=== PATIENT | female | born 1930 | race Caucasian/White ===

== ENCOUNTER 2016-07-19 05:30 | Day surgery (SDC) | payer MEDICARE, MEDICAID ==
--- NOTE | 2016-07-15 19:23 | PCM.ANEPRE ---
Anesthesia Pre-Op Review Reason for Review: cardio hx, platelet count 73 Anesthesia Recommendations: Proceed with Procedure Additional Comments 74 yo woman with multiple medical problems-see list. Low risk for ischemia arlen perfusion study 03/2016. LV Stress EF is 97%, excellent. Plts 73,000-Dr tomas has 6 pack of platelets ordered for day of surgery. Ok to proceed with usual DOS evaluation. GA should be acceptable given uncertain platelet count after transfusion. Chart Reviewed by: Mynor Rowland MD, MD Jul 15, 2016 19:23
[~2016-07-19] VITALS: Ht 152.4 cm; Wt 64.3 kg
[2016-07-19] VITALS (12 sets, daily range): BP systolic 112–151; BP diastolic 56–80; PULSE 54–74; RESP 16–20; O2SAT 94–99
[~2016-07-19 05:30] MED LIST: ACET-171 PO; AMLO5TAB2 PO; AMOX-366 PO; CALC-722 PO; CARV25TA2 PO; CHOL10008 PO; DOCU250C2 PO; FUR20 PO; ISOS30TA4 PO; KEN25CR EXT; LIP40 PO; LOSA50TA37 PO; Lactated Ringer's 1,000 ML IV ONE; MAGN400T23 PO; MULT-1018 PO; NITR0.4T SL; OMEP20TA24 PO; OXYC5TAB72 PO; PRAM0.252 PO; SENN-133 PO; WARF2.5T82 PO
[2016-07-19] MEDS ORDERED: Phenylephrine/NS 100 mCg/mL 10 mL Syringe IVPUSH ONE (05:31)
[2016-07-19] MEDS ORDERED: Bupiv-Spinal 0.75%/Dex 8.25% 2 mL Inj ONE (05:31)
[2016-07-19] MEDS ORDERED: Propofol 10,000 mCg/mL 20 mL Inj ONE (05:31)
[2016-07-19] MEDS ORDERED: fentaNYL-PF 50 mCg/mL 2 mL Inj ONE (05:31)
[2016-07-19] MEDS: Vancomycin 1 Gm/200 mL NS Premix IV SCH ×2 (06:00→06:34)
[2016-07-19] MEDS ORDERED: Bupivacaine Liposome 1.3% 20 mL Inj NERVEBLOCK ONE (06:00)
[2016-07-19] MEDS ORDERED: CeFAZolin Inj 2 GM in IV Premix 1 EACH IV ONE (06:00)
[2016-07-19 06:59] LABS: BASOPHILS % (AUTO) 0.3 % (0-3); EOSINOPHILS % (AUTO) 1.8 % (0-5); MONOCYTES % (AUTO) 11.6 % (4-12); Mean Corpuscular Hemoglobin 30.6 pg (27.0-35.0); Mean Corpuscular Volume 96.6 fL (81-100); NEUTROPHILS % (AUTO) 38.4 % (40-74); Platelet Count 82 bil/L (150-400)
[2016-07-19 07:17] LABS: INR 1.06 ratio
[2016-07-19] MEDS ORDERED: Bupivacaine-MPF 0.25%/EPI 30 mL Inj INJ ONE (08:48)
[2016-07-19] MEDS ORDERED: Bupivacaine Liposome 1.3% 20 mL Inj INFILTRATE ONE (08:48)
--- NOTE | 2016-07-19 08:52 | PCM.HPANE ---
Patient Data Surgeon Admitting Provider: Attending Provider:Hi Guardado MD Primary Care Physician:Loreto Medina MD Other Provider:La [place] Anesthesia Reason for Visit Left Knee Arthritis Ht/WT & BMI Height (Feet): 5 Height (Inches): 0.00 Weight (Kilograms): 64.3 Body Mass Index 27.00 Allergies Coded Allergies: Sulfa (Sulfonamide Antibiotics) (Verified Allergy, Severe, SWELLING, ) hydralazine (Verified Allergy, Severe, Rash, 07/14/15) lisinopril (Verified Allergy, Severe, Scratchy throat, 07/14/15) levofloxacin (Verified Allergy, Mild, 07/14/15) Past Anesthesia History Anesthesia History: Denies:: Anesthesia Reactions, Fam Anesthesia Reaction Diabetes History Hx Diabetes?: No MRSA MRSA: No (possibly after surgery- 2-3 years ago- unsure) Medications Blood Thinner: Coumadin Hypertension Medication: Yes Home Meds Incl Beta Lauren: Yes Date Beta Lauren Taken: Jul 19, 2016 Time Beta Lauren Taken: 0500 Reported Medications Warfarin Sodium 2.5 Mg Tablet1.25 Mg PO , tuesday 30 Days Ref 0 last dose 07/1307/15/16 Warfarin Sodium 2.5 Mg Tablet2.5 Mg PO 5xweekly 30 Days Ref 0 last dose 07/1307/15/16 Cholecalciferol (Vitamin D3) (Vitamin D3)1,000 Unit Tab.chew2,000 Unit PO DAILY 07/15/16 Sennosides (Senna)8.6 Mg Qrnvis67.2 Mg PO BID PRN For Constipation 07/15/16 Omeprazole Magnesium (Prilosec Otc)20 Mg Tablet.dr20 Mg PO DAILY #1 PKG Ref 0 07/15/16 oxyCODONE 5 Mg Tablet2.5 Mg PO BID PRN For Pain Ref 0 07/15/16 Nitroglycerin SL (Nitrostat)0.4 Mg Tab.subl0.4 Mg SL Q5MIN PRN For Chest Pain # 1 BOTTLE 07/15/16 Multivitamin (Multi Vitamin Daily)1 Each Tablet1 Each PO DAILY 30 Days Ref 0 07/15/16 Pramipexole Dihydrochloride (Mirapex)0.25 Mg Tablet0.375 Mg PO HS 07/15/16 Acetaminophen 500 Mg Tablet1,000 Mg PO Q8H PRN For Pain 07/15/16 Magnesium Oxide (Mag-Oxide)400 Mg Pempwx780 Mg PO DAILY 07/15/16 Losartan Potassium 50 Mg Bbiyti85 Mg PO QPM 07/15/16 Losartan Potassium 50 Mg Ylriwp43 Mg PO QAM 07/15/16 Atorvastatin (Lipitor)40 Mg Ekojsy84 Mg PO DAILY Ref 0 07/15/16 Furosemide 20 Mg Tab40 Mg PO DAILY 30 Days Ref 0 07/15/16 Isosorbide MN ER 30 Mg Tab.er.24h90 Mg PO DAILY 07/15/16 Docusate Sodium 250 Mg Rzvplar209 Mg PO BID PRN For Constipation Ref 0 07/15/16 Carvedilol 25 Mg Okwckl60 Mg PO BID Ref 0 07/15/16 Calcium Citrate/Vitamin D3 (Calcium Cit-Vit D 250-200 Tab)1 Each Tablet1 Each PO DAILY 07/15/16 Amlodipine 5 Mg Tablet5 Mg PO BID Ref 0 07/15/16 Discontinued Reported Medications Triamcinolone Acet (Triamcinolone Acetonide Cream)1 Applic/0.25 Gm Cr1 Applic EXT BID #60 GM Ref 0 07/15/16 Amoxicillin/Clav K 875-125 mg (Augmentin 875-125 mg)1 Each Tablet1 Tablet PO BID #20 TABLET Ref 0 07/15/16 Warfarin Sodium 2.5 Mg Tablet2.5 Mg PO DAILY 30 Days Ref 0 09/04/15 Furosemide 20 Mg Tab20 Mg PO DAILY 30 Days Ref 0 05/03/14 Losartan Potassium 50 Mg Gwiaff31 Mg PO BID 05/03/14 Sennosides (Senna Lax)8.6 Mg Tablet8.6 Mg PO DAILY PRN For Constipation 12/28/13 Hydrocodone/Acetaminophen ([place] 5-325 Tablet)1 Each Tablet1 Each PO DAILY PRN For Pain 09/02/13 Acetaminophen 500 Mg Vomwsi799 Mg PO Q8 PRN For Pain 09/02/13 Ca Cmb No.1/Vit D3/B-6/FA/B12 (Vitamin D3 1,000 Unit Tablet)1 Each Tablet2 Each PO NOON 30 Days 09/02/13 Omeprazole Magnesium (Omeprazole)20 Mg Capsule.dr20 Mg PO DAILY 30 Days Ref 0 09/02/13 Mirtazapine 7.5 Mg Oqliqi11 Mg PO HS #30 TABLET Ref 0 09/02/13 Citalopram 10 Mg Karegi23 Mg PO DAILY 30 Days Ref 0 09/02/13 Carvedilol (Coreg)25 Mg Xjwszs43 Mg PO BID 30 Days Ref 0 09/02/13 Atorvastatin (Lipitor)40 Mg Dpwkep21 Mg PO HS 30 Days Ref 0 09/02/13 CHOLECALCIFEROL-Expunged Drug, Do Not Renew! (VITAMIN D3-Expunged Drug, Do Not Renew!)2,000 Unit Capsule2,000 Unit PO DAILY Vitamin supplement 11/22/11 Multivitamins-Expunged Drug, Do Not Renew! 1 Each Tab.chew1 Each PO AM Vitamin supplement 11/22/11 Magnesium Oxide (Magnesium)400 Mg Akzhwli427 Mg PO DAILY Magnesium supplement 11/22/11 Calcium Citrate/Vitamin D3 (Calcium Citrate-Vit D Tab)1 Each Tablet1 Each PO DAILY Vitamin supplement 11/22/11 Isosorbide [place]-Expunged Drug, Do Not Renew! (Imdur-Expunged Drug, Do Not Renew! )30 Mg Tab.sr.24h90 Mg PO DAILY For blood pressure/chest pain control 11/17/10 Nitroglycerin-Expunged Drug, Do Not Renew! (Nitroglycerin SL-Expunged Drug, Do Not Renew!)0.4 Mg Tab.subl0.4 Mg SL PRN Take one tablet under the tongue every 5 minutes for up to 3 doses as needed for chest pain. 10/13/10 Discontinued Scripts Polyethylene Glycol 3350 (Miralax)17 Gm Powd.pack17 Gm PO BID 30 Days Prov:Stephanie Tavares MD 07/14/15 History History of ENT Problems?: No HEENT History: Positive for:: Hearing Problem Denies:: Cataracts (scheduled ) Dysphagia (occasional r/t prior stroke) Glaucoma Sinus Problem Hx of Heart Problems?: Yes Cardiovascular History: Positive for:: Atrial Fibrillation Cardiac Surgery (hx CABG- ) Chest Pain Hypertension Irregular Heartbeat (a fib) Denies:: AICD Congestive Heart Failure Edema Heart Murmur Pacemaker Thrombophlebitis Other Cardiac History: chronic ITP- followed by [facility]- last platelet count 73 Hx of Respiratory Problem?: Yes Respiratory History: Positive for:: Dyspnea (EXERTIONAL) Use of C-PAP Machine Denies:: Asthma COPD Chest Surgery Emphysema Hemoptysis Oxygen Administration Pneumonia Tuberculosis Use of Inhalers / NEBS Hx Neurologic Problems?: Yes Neurological History: Positive for:: CVA (stroke 6.5 years ago, no residual) Denies:: Alzheimer's Disease Dementia Dizziness Headaches Multiple Sclerosis Parkinson's Disease Seizures Hx of GI Problems?: Yes Gastrointestinal History: Positive for:: Gall Bladder Disease (removed) Gastroesphageal Reflux Denies:: Diverticulitis Gastrointestinal Bleeding Heartburn Hepatitis Hiatal Hernia Liver Disease Rectal Bleeding Hx of Problems?: Yes Genitourinary History: Positive for:: HX of Hemodialysis (CKD stage III) Denies:: Kidney Stones Urinary Tract Infection (past hx of - recent UA negative ) HX of Peritoneal Dialysis: No Female Hx: Denies:: Currently Endometriosis Pelvic Inflammatory Problems with Breasts? Skin History: Denies:: History Skin Disorders? Pressure Ulcers Hx Musculoskeletal Problems?: Yes Musculoskeletal History: Positive for:: Joint Replacement (right knee ) Musculoskeletal Trauma (left knee current admission problem) Osteoarthritis Denies:: Back Injury Fibromyalgia Myasthenia Gravis Systemic Lupus Hx of Psycho/Social Problems?: Yes Psycho Social History: Positive for:: Anxiety (panic attacks) Hx Depression Denies:: Bipolar Disorder Suicide Attempt Hx Surgeries?: Yes (right knee replacement, johanny, tonsil) Hx Any Other Health Problems?: Yes Other History: Positive for:: Hospitalization (FOR HTN X1, recently @ [facility] for CABG & MIx2) Denies:: Cancer Endocrine Disease Thyroid Disease History Blood Transfusions: Positive for:: Accept Blood Products? Blood Transfusions (during open heart surgery) Denies:: Blood Transfuse Reaction Hx Diabetes: No Hx Alcohol Use: NoHx Substance Use: No Smoking Status: Never Smoker Have You Smoked inLast 12 mo: No Stop/Bang S-Snoring: Do You Snore Loudly: No T-Tired: feel tired, fatigued: No O-Obsered: Observed not breath: No P-Blood Pressure: treated: Yes B- Body Mass Index > 35 kg/m2: No A- Age over 50: Yes N- Neck Large Circumference: No G- Gender Male: No FREDRICK Total Score: 2 Risk Assessment Category Category 1A: Patient has history of documented sleep apnea, and HAS NOT received any narcotic, sedative or anesthesia administration during this stay. Category 1B: Patient has history of documented sleep apnea, and HAS received any narcotic , sedative or anesthesia administration during this stay Category 2: Patient has SUSPECTED Obstructive Sleep Apnea, and HAS received any narcotic , sedative or anesthesia administration during this stay. Category 3: Patient has SUSPECTED Obstructive Sleep Apnea and HAS NOT received narcotic, sedative or anesthesia administration during this stay. Category 4: Outpatient in Procedural Areas with known sleep apnea or who screen positive for High Risk via the STOP/BANG questionnaire. Exam Exam Vital Signs Vital Signs Date Time Temp Pulse Resp B/P Pulse Ox O2 Delivery O2 Flow Rate FiO2 07/19/16 08:07 36.8 69 18 145/68 94 Room Air 07/19/16 07:50 36.9 68 18 139/68 94 Room Air 07/19/16 07:40 36.8 65 16 143/72 94 Room Air 07/19/16 06:30 35.8 64 18 139/71 97 Room Air 07/19/16 06:30 CPAP/BIPAP General Appearance: Alert, Oriented X3, Cooperative, No Acute Distress HEENT/AIRWAY: MP 2 Lungs: Clear to Auscultation Heart: Exam Unremarkable Meds/Labs/Diagnostics Admission Meds Current Medications Lactated Ringer's 1,000 ml @ 120 mls/hr Q8H20M ONCE IV Last administered on 05:46; Start 07/19/16 at 05:00; Stop 07/19/16 at 13:19 Vancomycin/0.9 % Sod Chloride/ Premix (Vancomycin Inj/ IV Premix) 200 ml @ 133.333 mls/hr PREOP IV Last administered on 07/19/16 06:34; Start 07/19/16 at 06:00 Labs Test 07/19/16 06:15 White Blood Count 3.8th/mm3 (3.8-10.1) Red Blood Count 3.85mil/mm3 (3.90-5.20) Hemoglobin 11.8g/dL (12.0-15.6) Hematocrit 37.2% (35.0-46.0) Mean Corpuscular Volume 96.6fL (81-100) Mean Corpuscular Hemoglobin 30.6pg (27.0-35.0) Mean Corpuscular Hemoglobin Concent 31.7% (32.0-37.0) Red Cell Distribution Width 13.8% (12.3-15.4) Platelet Count 82bil/L (150-400) Neutrophils (%) (Auto) 38.4% (40-74) Lymphocytes (%) (Auto) 47.9% (14-46) Monocytes (%) (Auto) 11.6% (4-12) Eosinophils (%) (Auto) 1.8% (0-5) Basophils (%) (Auto) 0.3% (0-3) Prothrombin Time 11.4sec (8.1-12.5) Prothromb Time International Ratio 1.06ratio Plan Impression Patient chart reviewed, patient interviewed and anesthestic plan with risks, benefits, and alternatives discussed, and informed consent obtained. NPO Status: 11pm ASA Physical Status: ASA3 Severe Disease (CAD) Anesthetic Plan: SAB Bene/Risks/Altern/Consents: Yes HP Complete Prior to Induction: Yes Chepe Rojas MD Jul 19, 2016 08:52
[2016-07-19] MEDS ORDERED: Lactated Ringer's 500 ML IV PRN (08:53)
[2016-07-19] MEDS ORDERED: Lactated Ringer's 1,000 ML IV SCH (08:53)
[2016-07-19] MEDS ORDERED: HYDROmorphone 1 mg/mL Inj IVPUSH PRN (08:55)
[2016-07-19] MEDS ORDERED: Dexamethasone 4 mg/mL Inj IVPUSH PRN (08:55)
[2016-07-19] MEDS ORDERED: Phenylephrine 10,000 mCg/mL Inj IVPUSH PRN (08:55)
[2016-07-19] MEDS ORDERED: EPHEDrine Sulfate 50 mg/mL Inj IVPUSH PRN (08:55)
[2016-07-19] MEDS ORDERED: fentaNYL-PF 50 mCg/mL 2 mL Inj IVPUSH PRN (08:55)
[2016-07-19] MEDS ORDERED: Ondansetron 2 mg/mL 2 mL Inj IVPUSH PRN (08:55)
[2016-07-19] MEDS ORDERED: MetoCLOpramide 5 mg/mL 2 mL Inj IVPUSH PRN (08:55)
[2016-07-19] MEDS ORDERED: Gentamicin 40 mg/mL 2 mL Inj IRRIGATION ONE (08:59)
[2016-07-19] MEDS ORDERED: diphenhydrAMINE 25 mg Capsule PO PRN (09:40)
[2016-07-19] MEDS ORDERED: Polyethylene Glycol (PEG) 17 Gm Powder PO PRN (09:40)
[2016-07-19] MEDS ORDERED: HYDROmorphone 2 mg/mL Inj IVPUSH PRN (09:40)
[2016-07-19] MEDS ORDERED: Sodium Biphos-Phos 133 mL Enema RECTAL PRN (09:40)
[2016-07-19] MEDS ORDERED: Magnesium Hydroxide 10 mL Oral Concentration PO PRN ×2 (09:40→11:26)
--- NOTE | 2016-07-19 10:18 | DRSVH ---
PROCEDURE: X-RAY LEFT KNEE, ONE OR TWO VIEWS ([id number]) INDICATIONS: postop TECHNIQUE: 3 view(s) of the knee acquired. COMPARISON: None. FINDINGS: Bones: Patient is status post knee joint arthroplasty. Hardware components are in expected position s. Visualized bony structures are intact. Soft tissues: Overlying postoperative changes are noted. Multiple surgical clips present. Vascular calcifications indicate atherosclerosis. IMPRESSION: Expected alignment status post placement of medial left knee unicondylar arthroplasty. Dictated by: Nelson SELF Interpreted: Bailey Billingsley MD on 07/19/2016 at 10:16 Transcribed by: TESS on 07/19/2016 at 10:18 Approved by: Bailey Billingsley MD, PhD on 07/19/2016 at 18:04
[2016-07-19 10:27] LABS: APPEARANCE,URINE HAZY (CLEAR,HAZY); COLOR,URINE YELLOW (YELLOW); OCCULT BLOOD,URINE NEGATIVE (NEGATIVE); PH,URINE 6.5 (5.0-8.0); UROBILINOGEN,URINE NORMAL (NORMAL)
--- NOTE | 2016-07-19 10:49 | PCM.ANEP1 ---
Post Anesthesia Phase 1 PACU Phase 1 Assessment Vital Signs Vital Signs Date Time Temp Pulse Resp B/P Pulse Ox O2 Delivery O2 Flow Rate FiO2 07/19/16 10:16 58 16 130/56 98 Nasal Cannula 2 07/19/16 09:55 54 17 118/57 99 Nasal Cannula 2 07/19/16 09:50 57 18 120/57 99 Nasal Cannula 2 07/19/16 09:48 36.7 58 18 112/60 98 Nasal Cannula 2 07/19/16 08:07 36.8 69 18 145/68 94 Room Air 07/19/16 07:50 36.9 68 18 139/68 94 Room Air 07/19/16 07:40 36.8 65 16 143/72 94 Room Air 07/19/16 06:30 35.8 64 18 139/71 97 Room Air 07/19/16 06:30 CPAP/BIPAP Anesthetic Administered: SAB Level of Alertness: Awake, talking ROGEL's with Equal Strength: No (spinal) Pain: No Nausea or Vomiting: No Oxygen Delivery: Room Air Lungs: Clear to Auscultation Chepe Rojas MD Jul 19, 2016 10:49
[2016-07-19] MEDS ORDERED: HYDROmorphone 0.5 mg/0.5 mL iSecure Syringe IVPUSH PRN (11:28)
--- NOTE | 2016-07-19 12:06 | PCM.PHAPRO ---
Progress Warfarin Management by Pharmacy: -Indication: afib -Home Dose: warfarin 1.25mg on and 2.5mg all other days -Inr Goal: 2-3 -Inr on 07/19: 1.06 -H/H 11.8/37.2 Plt: 82 -Drug Interactions: none noted -Concurrent Anticoagulation: enoxaparin 30mg subq daily -Plan: warfarin had been held prior to surgery. will resume this evening with warfarin 2.5mg. will monitor platelets Blaire Rowley [facility] Jul 19, 2016 12:06
--- NOTE | 2016-07-19 13:23 | NUR ---
POST-OP Received from PACU via a hospital bed. IVF ongoing at this time. Dressing in her L knee is CDI. Patient complained of numbness/tingling. Spinal anesthesia is in effect. Dressing is CDI. Hemovac intact. Unclamped at 1300. Will monitor output. SCD's are on. IFC intact and draining to jennifer colored UO. Oriented to room, call light and bathroom. Addendum: 07/19/16 at 1856 by MONSE WINTER RN POST-OP Vicodin 1 tab PO administered for complaints of pain, which was helpful. Tolerating diet and PO liquids well. Denies nausea. No emesis noted. Denies SOB. Patient has been able to ambulate with SBA and the FWW. Tolerated activity well. Dressing is CDI. Hemovac in place. Sero-sanguinous output noted. IFC intact and draining to jennifer colored UO.
--- NOTE | 2016-07-19 14:54 | NUR ---
Evaluation completed. Please go to "Notes" then click on "Assessments and Notes" (bottom left corner of screen). Then select appropriate discipline tab on top of screen.
[2016-07-19] MEDS: Sodium Chloride LOK Flush 10 mL Syringe IV SCH (16:30)
[2016-07-19] MEDS: HYDROcodone-APAP 5-325 mg Tablet PO PRN ×2 (16:33→21:23)
[2016-07-19] MEDS: Senna-Docusate 8.6-50 mg Tablet PO SCH (21:21)
--- NOTE | 2016-07-19 22:58 | OP ---
[address] [address] OPERATIVE REPORT PATIENT: CHRIS MAGAÑA : 1930 MR#: [id number] ADMIT: 07/19/2016 JOB ID: [id number] DATE OF SURGERY: 07/19/2016 PREOPERATIVE DIAGNOSIS(ES): Left knee advanced medial compartment osteoarthritis. POSTOPERATIVE DIAGNOSIS(ES): Left knee advanced medial compartment osteoarthritis. PROCEDURE: Unicompartmental knee arthroplasty. SURGEON: Hi Guardado MD. DIRECTOR OF OPERATIONS HOME HEALTH: Melissa Braxton PA-C. Binder Selector required due to the major complexity of the operation. INDICATIONS: This woman has had severe progressive disability associated with advanced medial compartment osteoarthritis. She elects to proceed with the unicompartmental knee arthroplasty. She understands and accepts the potential for risks and complications, which include, but is not limited to, infection, thromboembolic, neurovascular events, as well as potential for progressive arthritis in unresurfaced compartments and implant failure. Understanding this, she wishes to proceed. PROCEDURE: The patient was prepped and draped in usual sterile fashion. An anteromedial approach was made to the knee. Dissection was carried down. Patellar osteophyte was removed. The tibial guide was assembled and a standard tibial cut was made. The bone fragments were removed. The 9 spacer block was applied. Appropriate soft tissue flexion and extension was achieved. Distal femoral cut was subsequently made. The femur was sized to a #3 femoral component which was fixed in appropriate position. Rotation and drill holes and chamfer cuts were made. The tibia was sized to a D, provisionally fixed, and drill holes were made. Trial reduction was performed. An 8 mm polyethylene was chosen, which produced excellent soft tissue tension and alignment. Pressurized lavage was followed by pressurized cementation of the components. Excess cement was removed during the curing process. Final construct was assembled. Deep closure with #2 Quill deep, followed by 2-0 Vicryl, 3-0, and a 4-0 intracuticular stitch. Steri-Strips were applied. The patient was returned to the recovery room in stable condition. She tolerated the procedure well. There were no complications. She was taken to the recovery room in stable condition. Due to her multiple medical problems, she will be observed overnight before being discharged.
[2016-07-20 00:46] VITALS: BP 156/76; PULSE 72; RESP 16; O2SAT 92
[2016-07-20] MEDS: Sodium Chloride LOK Flush 10 mL Syringe IV SCH ×3 (01:25→16:30)
[2016-07-20] MEDS: HYDROcodone-APAP 5-325 mg Tablet PO PRN ×5 (01:27→17:47)
--- NOTE | 2016-07-20 05:09 | NUR ---
Pain / Mobility Pain managed with PO medications. Steady ambulation with FWW. Pt progressing well. Hourly rounding ongoing.
[2016-07-20] MEDS ORDERED: Pantoprazole 20 mg ER24 Tablet PO SCH (06:30)
--- NOTE | 2016-07-20 06:46 | PCM.PNORTH ---
Subjective Date of Service: Jul 20, 2016 Visit Information: Reason for Visit Left Knee Arthritis Surgery/Surgery Date Post-Op Day # Date of Admission: Hospital Day # Subjective Foundation awake and alert's morning and sitting up in bed. No complaints of pain at this time. Discussed discharge to home today with patient and she is prepared for this. In discussion it is apparent patient has no regular full- time help at home but does have a knee that comes in occasionally. In interacting with the patient as morning I have concerned that she will be able to manage her Coumadin with Lovenox bridging regarding the injections and I am concerned that she will be able to arrange appointment with her Coumadin clinic for monitoring. I am also concerned the patient has someone with her on some sort of regular basis to monitor her mobility and safety. I believe patient will be a high risk for return and readmittance. We will attempt to manage and arrange this today with licensed clinical social worker and possibly home health assistance. Patient is otherwise doing well this morning and has participated with formal physical therapy 75 feet. Postop General: No Complaints, No Shortness of Breath, No Chest Pain Pain Management: PO Objective Exam Objective Patient is alert and oriented and in no acute distress. Interoperative dressing is clean dry and intact. This is removed and changed to postop island-type dressing this morning. Calf and thigh are soft and nontender. Toe wiggle and sensation are intact that left lower extremity distally. Elizalde is absent. Wound drain is absent. Gait times 75 feet yesterday on OP day, 07/19/2016 with physical therapy. Recommendation is for discharge home with home health.. Gait 80-100 feet today on 07/20/2016 with physical therapy. Vital Signs and I/O Vital Sign - Last Date Time Temp Pulse Resp B/P Pulse Ox O2 Delivery O2 Flow Rate FiO2 07/20/16 00:46 36.6 72 16 156/76 92 CPAP 07/19/16 10:16 2 Intake and Output 07/19/16 07/19/16 07/20/16 Cumulative From/Thru 15:00 23:00 07:00 07/15/16 11:37 - 07/20/16 06:32 Intake Total 431 ml 1140 ml 400 ml 3071 ml Output Total 245 ml 670 ml 820 ml 1735 ml Balance 186 ml 470 ml -420 ml 1336 ml Intake Oral 1140 ml 400 ml 1540 ml IV Total 200 ml 1300 ml Platelets 231 ml 231 ml Output Urine Total 200 ml 600 ml 750 ml 1550 ml Drainage Total 70 ml 70 ml 140 ml Estimated Blood Loss 45 ml 45 ml # Bowel Movements 0 0 Lab & Micro Results Laboratory Tests Test 07/19/16 10:15 Urine Color Yellow (YELLOW) Urine Appearance Hazy (CLEAR,HAZY) Urine pH 6.5 (5.0-8.0) Urine Specific Slaughter 1.010 (1.003-1.035) Urine Protein Negativemg/dL (NEG,TRACE) Urine Glucose (UA) Negativemg/dL (NEGATIVE) Urine Ketones Negativemg/dL (NEGATIVE) Urine Occult Blood Negative (NEGATIVE) Urine Nitrite Negative (NEGATIVE) Urine Bilirubin Negative (NEGATIVE) Urine Urobilinogen Normalmg/dL (NORMAL) Urine Leukocyte Esterase Negative (NEGATIVE) Urine RBC 0-2/hpf (0-2) Urine WBC 0-5/hpf (0-5) Urine Epithelial Cells Occasional/hpf (NONE-MOD) Urine Crystals None seen (NONE SEEN) Urine Bacteria Few/hpf (NONE-FEW) Urine Hyaline Casts Rare/lpf (NONE) Urine Granular Casts None seen (NONE SEEN) Urine Waxy Casts None seen (NONE SEEN) Urine Red Blood Cell Casts None seen (NONE SEEN) Urine White Blood Cell Casts None seen (NONE SEEN) Urine Mucus Present (None Seen) Urine Trichomonas None seen (NONE SEEN) Urine Yeast None (NONE SEEN) Urinalysis Comment None Urine Culture Reflexed Not indicated Result Diagram: 07/19/16 0615 General Appearance: Alert, Oriented X3, Cooperative, No Acute Distress Extremities: No Compartment Syndrom Noted, Thigh & Calf Soft/Nontender Postop Sensory Motor: Distal Motor Intact, Movement in Toes, Distal Sensation Intact SURGICAL WOUND : Drain Location Body Site: Knee Wound Drainage Type: Hemovac Activity: Activity per PT, Ambulate with PT (weightbearing as tolerated on the left lower extremity using a front wheeled walker.) Catheters: None Assessment & Plan Impression Patient is an 85-year-old female who is 1 day postop left medial unicompartmental knee arthroplasty performed on 07/19/[address] Hi Guardado. Patient is pleasant and oriented and cooperative but she does have age-related slow mentation issues and I believe she is a high risk for fall and return admittance based on my interaction with her this morning. Problems: Plan Postoperative day #1 from left medial unicompartmental knee arthroplasty performed on 07/19/[address] Hi Guardado. Weightbearing as tolerated on the left lower extremity using a front wheeled walker. Continue formal physical therapy while in hospital for mobility, gait and safety. Continue chronic oxycodone dosing with the addition of [place] 5/325 for pain control. May use Vistaril 25 mg every 6 when necessary if needed. Begin ghronic warfarin dosing today at her usual rate of 1.25 on Tuesday and Tuesday and 2.5 on remainder of week. Use Lovenox 30 mg subcutaneous daily for bridging. Patient should arrange to see her Coumadin clinic or monitoring physician as soon as possible post discharge. Elizalde and wound drain had been removed this morning by nursing prior to my arrival. Interoperative dressing is changed to island-type dressing this morning and patient has been given additional bandaging materials and nursing is notified. Ice and elevate the knee as needed for comfort. Maintain mobility with gentle range of motion at the knee from full extension to 90. Wound may be showered in 3-4 days if it has been clean and dry for 24 hours. Otherwise wound should be covered until seen in the office in 2 weeks. We will attempt to arrange home health RN for Lovenox injections with bath aid and PT home health as well. Follow-up in 2 weeks at [facility] orthopedic clinic on prearranged appointment with mid sole provider for wound check and suture removal. Follow-up in [address] [facility] with Dr. Hi Guardado with left two-view knee x-rays on arrival. Anticipate discharge to home today on postop day #1, 07/20/2016 with home health nursing and physical therapy after p.m. physical therapy session.. VTE Prophylaxis: Sub-Q Enoxaparin (Lovenox 30 mg subcutaneous daily for bridging to chronic Coumadin dosing), Theraputic Anticoag with Warfarin, SCDs ( SCD right lower extremity) Markell Piedra PA-C Jul 20, 2016 06:46
[2016-07-20 06:49] VITALS: BP 118/68; PULSE 69; RESP 18; O2SAT 93
[2016-07-20] MEDS ORDERED: hydrOXYzine Pamoate 25 mg Capsule PO PRN (07:10)
[2016-07-20 07:15] LABS: INR 1.02 ratio
[2016-07-20] MEDS ORDERED: Isosorbide Mononitrate 30 mg ER24 Tablet PO SCH (07:30)
--- NOTE | 2016-07-20 07:47 | PCM.PHAPRO ---
Progress Warfarin Management by Pharmacy -Indication: afib -Home Dose: warfarin 1.25mg on and 2.5mg all other days -Inr Goal: 2-3 -Inr on 07/19: 1.06, Inr 07/20= 1.02 -H/H 11.8/37.2 Plt: 82 (07/19) -Drug Interactions: none noted -Concurrent Anticoagulation: enoxaparin 30mg subq daily Plan: Day 2 of resuming warfarin s/p knee surgery. will give 2.5mg warfarin this evening and follow. will order cbc for tomorrow and follow Blaire Rowley [facility] Jul 20, 2016 07:47
[2016-07-20] MEDS: Senna-Docusate 8.6-50 mg Tablet PO SCH (08:30)
[2016-07-20 09:05] VITALS: BP 139/71; PULSE 72; RESP 18; O2SAT 92
--- NOTE | 2016-07-20 09:11 | PCM.ANEP2 ---
Post Anesthesia Evaluation ASA/CMS Post Anesthesia VS in Patient's Normal Range?: Yes Resp Stable; Airway Patent?: Yes CV Function & Hydration Stable: Yes Mental Status Recovered?: Yes Pain control Satisfactory?: Yes N/V Control Satisfactory?: Yes Chepe Rojas MD Jul 20, 2016 09:11
--- NOTE | 2016-07-20 11:56 | PCM.DIORTH ---
Ortho Discharge Instruction Date of Service: Jul 20, 2016 Dates of Hospitalization Date of Hospital Admission 07/19/2016 Providers Admitting Physician: Primary Care Physician: Loreto Medina MD Attending Physician: Hi Guardado MD Diet Discharge Diet: No restrictions Activity Discharge Activity-General: Try not to overdue, Be up and about, Balance rest and activity, Ice incision 3-5 time/day for 20min, Activity as pain allows, Activity as energy allows, No driving while taking narcotic Left Lower Extremity: Weight Bearing as tolerated Discharge Assist Device: Front Wheeled Walker Dressing and Incisional Care Discharge Dressing Care: Keep dressing clean, dry & intact, Change soiled dressing Discharge Hygiene: May shower (patient may shower in 3-4 days if wound is clean and dry and has been dry for 24 hours.), DO NOT soak incision under water , NO bathtub, hot tub or whirlpool Additional Instructions Discharge Instructions Weightbearing as tolerated on the left lower extremity using a front wheeled walker. Continue formal physical therapy while in hospital for mobility, gait and safety. Continue chronic oxycodone dosing with the addition of [place] 5/325 for pain control. May use Vistaril 25 mg every 6 when necessary if needed. Begin chronic warfarin dosing today at her usual rate of 1.25 on Tuesday and Tuesday and 2.5 on remainder of week. Use Lovenox 30 mg subcutaneous daily for bridging. Patient should arrange to see her Coumadin clinic or monitoring physician as soon as possible post discharge. Patient will be sent home with 7 Lovenox 30 mg syringes. Elizalde and wound drain had been removed this morning by nursing prior to my arrival. Interoperative dressing is changed to island-type dressing this morning and patient has been given additional bandaging materials and nursing is notified. Ice and elevate the knee as needed for comfort. Maintain mobility with gentle range of motion at the knee from full extension to 90. Wound may be showered in 3-4 days if it has been clean and dry for 24 hours. Otherwise wound should be covered until seen in the office in 2 weeks. We will attempt to arrange home health RN for Lovenox injections with bath aid and PT home health as well. Follow-up in 2 weeks at [facility] orthopedic clinic on prearranged appointment with mid sole provider for wound check and suture removal. Follow-up in 6 weeks at [facility] with Dr. Hi Guardado with left two-view knee x-rays on arrival. Anticipate discharge to home today on postop day #1, 07/20/2016 with home health aide, nursing and physical therapy. Follow Up Plan Follow Up Plan Patient will be seen at 2 weeks, 6 weeks and 12 weeks postoperatively. Patient will be seen when necessary in the interim. Follow-up Provider (F9): Hi Guardado MD Mid-level Provider (F9): Melissa Braxton PA-C Follow-up appointment: Weeks (follow-up in 2 weeks this [facility] orthopedic clinic with mid-level provider on prearranged appointment for wound check and suture removal.) Call your provider for: Fever, Chills, Shortness of breath, Vomitting, Drainage at incision Markell Piedra PA-C Jul 20, 2016 11:56
[2016-07-20] MEDS ORDERED: DOCU-41 PO (12:02)
[2016-07-20] MEDS ORDERED: HYDR-3797 PO (12:02)
[2016-07-20] MEDS ORDERED: LOV30 SUBQ (12:02)
[2016-07-20] MEDS ORDERED: HYDR-4003 PO (12:02)
--- NOTE | 2016-07-20 12:02 | NUR ---
Social Work- Brief Note/Readiness for Discharge Data: EMR reviewed. Pt is a 85 year old female outpt day surgery pt s/p left knee replacement. SW spoke with Ortho PAEricC who requested SW follow up and discharge planning. SW spoke with pt regarding discharge plan, SW role explained. Pt resides in [place] where she receives assistance with her ADLs, including grocery shopping, meals, medication management, dressing/bathing, and transportation to medical appointments. Pt's [employer] worker is at bedside. Pt states she has 114 hours per month through [employer]. PT saw pt this morning, cleared pt for home with HHPT and outpt PT when ready. SW followed up with pt regarding lovanox injections and INR management per Ortho PA's request. HH role and recommendation explained. HH choice list provided. Pt has no preference for HH, SW consulted rotating calendar and made referral to [facility] for RN PT. F2F signed and given to Magdalena Woodson liaison [phone]. Miki informed EMILIA that pt's RN services will begin tomorrow. SW updated pt and caregiver at bedside. All updated and agreeable to plan. SW will continue to follow. Assessment: Pt who receives assistance through [employer] and would benefit from Magdalena GARCIA RN PT. Plan: Pt to discharge home with [facility] [facility] caregiving and Magdalena GARCIA RN PT. F2F provided to Magdalena. SW will continue to follow. LUIS Renae
--- NOTE | 2016-07-20 12:07 | PCM.DC.ORT ---
Discharge Summary Date of Service: Jul 20, 2016 Date of Hospital Admission: 07/19/2016 Date of Surgery: Jul 19, 2016 Date of Discharge: Jul 20, 2016 Reason for Hospitalization: Left knee osteoarthritis severe Procedures Performed: Left medial unicompartmental knee arthroplasty Hospital Course: Patient was admitted to the hospital through the preoperative care unit on 07/19 and taken to the operating room where her procedure was performed without incident. Upon awakening he was taken to the postoperative care unit and upon recovery from anesthesia he was taken to the orthopedic care unit where she performed satisfactorily with physical therapy and received clearance for discharge to home. Problems: (1) Osteoarthritis of left knee Status: Acute ICD Code: M17.9 Disposition: Discharged home with home health services and [facility] [facility] services. Orthopedic Follow up Plan: In Six Weeks in my clinic Discharge Instructions: Weightbearing as tolerated on the left lower extremity using a front wheeled walker. Continue formal physical therapy while in hospital for mobility, gait and safety. Continue chronic oxycodone dosing with the addition of [place] 5/325 for pain control. May use Vistaril 25 mg every 6 when necessary if needed. Begin chronic warfarin dosing today at her usual rate of 1.25 on Tuesday and Tuesday and 2.5 on remainder of week. Use Lovenox 30 mg subcutaneous daily for bridging. Patient should arrange to see her Coumadin clinic or monitoring physician as soon as possible post discharge. Patient will be sent home with 7 Lovenox 30 mg syringes. Elizalde and wound drain had been removed this morning by nursing prior to my arrival. Interoperative dressing is changed to island-type dressing this morning and patient has been given additional bandaging materials and nursing is notified. Ice and elevate the knee as needed for comfort. Maintain mobility with gentle range of motion at the knee from full extension to 90. Wound may be showered in 3-4 days if it has been clean and dry for 24 hours. Otherwise wound should be covered until seen in the office in 2 weeks. We will attempt to arrange home health RN for Lovenox injections with bath aid and PT home health as well. Follow-up in 2 weeks at [facility] orthopedic clinic on prearranged appointment with mid sole provider for wound check and suture removal. Follow-up in 6 weeks at [facility] with Dr. Hi Guardado with left two-view knee x-rays on arrival. Anticipate discharge to home today on postop day #1, 07/20/2016 with home health aide, nursing and physical therapy. Management Plan: Patient will be seen at 2 weeks, 6 weeks and 12 weeks postoperatively. Patient will be seen when necessary in the interim. Amlodipine (Amlodipine) 5 Mg Tablet 5 MG PO BID Atorvastatin (Lipitor) 40 Mg Tablet 40 MG PO DAILY Calcium Citrate/Vitamin D3 (Calcium Cit-Vit D 250-200 Tab) 1 Each Tablet 1 EACH PO DAILY Carvedilol (Carvedilol) 25 Mg Tablet 25 MG PO BID Cholecalciferol (Vitamin D3) (Vitamin D3) 1,000 Unit Tab.chew 2,000 UNIT PO DAILY Docusate Sodium (Colace) 100 Mg Capsule 100 MG PO BID Enoxaparin (Lovenox) 30 Mg/0.3 Ml Syringe 30 MG SUBQ DAILYWM Furosemide (Furosemide) 20 Mg Tab 40 MG PO DAILY Hydrocodone-Acetaminophen 5-325 mg (Hydrocodone-Acetaminophen 5-325 mg) 1 Each Tablet 1-2 TABLET PO Q4H PRN PRN For Moderate Pain Hydroxyzine Pamoate (HydrOXYzine Pamoate) 25 Mg Capsule 25 MG PO Q4-6H PRN PRN For Restlessness Isosorbide MN ER (Isosorbide MN ER) 30 Mg Tab.er.24h 90 MG PO DAILY Losartan Potassium (Losartan Potassium) 50 Mg Tablet 25 MG PO QAM Losartan Potassium (Losartan Potassium) 50 Mg Tablet 50 MG PO QPM Magnesium Oxide (Mag-Oxide) 400 Mg Tablet 400 MG PO DAILY Multivitamin (Multi Vitamin Daily) 1 Each Tablet 1 EACH PO DAILY Nitroglycerin SL (Nitrostat) 0.4 Mg Tab.subl 0.4 MG SL Q5MIN PRN PRN For Chest Pain Omeprazole Magnesium (Prilosec Otc) 20 Mg Tablet.dr 20 MG PO DAILY Pramipexole Dihydrochloride (Mirapex) 0.25 Mg Tablet 0.375 MG PO HS Sennosides (Senna) 8.6 Mg Tablet 17.2 MG PO BID PRN PRN For Constipation Warfarin Sodium (Warfarin Sodium) 2.5 Mg Tablet 2.5 MG PO 5xweekly last dose 07/13 Warfarin Sodium (Warfarin Sodium) 2.5 Mg Tablet 1.25 MG PO , tuesday last dose 07/13 oxyCODONE (oxyCODONE) 5 Mg Tablet 2.5 MG PO BID PRN PRN For Pain Markell Piedra PA-C Jul 20, 2016 12:07
[2016-07-20 13:48] VITALS: BP 121/65; PULSE 75; RESP 16; O2SAT 92
--- NOTE | 2016-07-20 16:05 | NUR ---
Social Work- Discharge Data: EMR reviewed. Pt is a 85 year old female outpt day surgery pt s/p left knee replacement. SW spoke with pt regarding discharge plan, pt requested SW call friend Negin. SW spoke with Negin who is agreeable to picking up pt from hospital and coordinating overnight supervision. Pt to discharge home with [employer] caregivers and Magdalena GARCIA with friends to transport via POV. Miki informed EMILIA that pt's RN services will begin tomorrow. SW updated pt and caregiver at bedside. All updated and agreeable to plan. Assessment: Pt who receives assistance through [employer] and would benefit from Magdalena GARCIA RN PT. Plan: Pt to discharge home with [employer] caregiving and Magdalena GARCIA RN PT with friends to transport via POV. Pt's friends to coordinate overnight supervision for pt. All updated and agreeable to plan. Shiloh Walsh MSW
--- NOTE | 2016-07-20 19:10 | NUR ---
Discharge note- Patient forgetful at times. Up with physical therapy and sat up in chair for supper. Pain meds appear to be effective for pain. Left knee dressing dry and intact.
--- NOTE | 2016-07-20 19:11 | NUR ---
Discharge- Discharge instructions and info given to patient and friends of patient who will be taking care of her after discharge. Patient discharged to home with personal belongings.
== END 2016-07-20 19:10 | disposition home or self-care (01) ==
LOC: SAS 05:30 → OSC 11:16 → SAS 07-20 19:10
PROVIDERS: ATTEND Orthopaedic Surgery
DX: M17.12 Unilateral primary osteoarthritis, left knee (principal); I12.9 Hypertensive chronic kidney disease with stage 1 through stage 4 chronic kidney disease, or unspecified chronic kidney disease; N18.3 Chronic kidney disease, stage 3 (moderate); I25.5 Ischemic cardiomyopathy; I48.91 Unspecified atrial fibrillation; I25.10 Atherosclerotic heart disease of native coronary artery without angina pectoris; G25.81 Restless legs syndrome; F32.9 Major depressive disorder, single episode, unspecified; K21.9 Gastro-esophageal reflux disease without esophagitis; N39.41 Urge incontinence; F41.9 Anxiety disorder, unspecified; E78.5 Hyperlipidemia, unspecified; Z85.828 Personal history of other malignant neoplasm of skin; Z96.651 Presence of right artificial knee joint; Z86.73 Personal history of transient ischemic attack (TIA), and cerebral infarction without residual deficits; Z87.440 Personal history of urinary (tract) infections; Z95.5 Presence of coronary angioplasty implant and graft; Z79.01 Long term (current) use of anticoagulants; Z95.1 Presence of aortocoronary bypass graft
CPT/HCPCS: 27446; 36415; 73560; 81000; 85025; 85610; 97110; 97116; 97162; 97530; C1713; C1776; J0690; J1580; J1650; J1885; J2250; J2370; J3010; J3370; J7120; Q0177

== ENCOUNTER 2017-01-10 21:39 | Emergency (ER) | payer MEDICARE, MEDICAID ==
[~2017-01-10] VITALS: Ht 152.4 cm; Wt 63.6 kg
[~2017-01-10 21:39] MED LIST changes: -ACET-171 PO; -AMOX-366 PO; +DOCU-41 PO; -DOCU250C2 PO; -KEN25CR EXT; -Lactated Ringer's 1,000 ML IV ONE; -OXYC5TAB72 PO; -SENN-133 PO
[2017-01-10 21:50] VITALS: BP 142/71; PULSE 70; RESP 20; O2SAT 99
--- NOTE | 2017-01-10 21:53 | ED.REPORT ---
HPI-Dyspnea / Wheezing Date of Service Jan 10, 2017 ED Provider: Yunior Hooks MD Nursing Notes Stated Complaint: CHEST PRESSURE Nursing Notes Reviewed: Yes Allergies: Coded Allergies: Sulfa (Sulfonamide Antibiotics) (Verified Allergy, Severe, SWELLING, ) hydralazine (Verified Allergy, Severe, Rash, 07/14/15) lisinopril (Verified Allergy, Severe, Scratchy throat, 07/14/15) levofloxacin (Verified Allergy, Mild, 07/14/15) Scheduled Amlodipine (Amlodipine) 5 Mg Tablet 5 MG PO BID Atorvastatin (Lipitor) 40 Mg Tablet 40 MG PO DAILY Calcium Citrate/Vitamin D3 (Calcium Cit-Vit D 250-200 Tab) 1 Each Tablet 1 EACH PO DAILY Carvedilol (Carvedilol) 25 Mg Tablet 25 MG PO BID Cholecalciferol (Vitamin D3) (Vitamin D3) 1,000 Unit Tab.chew 2,000 UNIT PO DAILY Docusate Sodium (Colace) 100 Mg Capsule 100 MG PO BID Furosemide (Furosemide) 20 Mg Tab 40 MG PO DAILY Isosorbide MN ER (Isosorbide MN ER) 30 Mg Tab.er.24h 90 MG PO DAILY Losartan Potassium (Losartan Potassium) 50 Mg Tablet 25 MG PO QAM Losartan Potassium (Losartan Potassium) 50 Mg Tablet 50 MG PO QPM Magnesium Oxide (Mag-Oxide) 400 Mg Tablet 400 MG PO DAILY Multivitamin (Multi Vitamin Daily) 1 Each Tablet 1 EACH PO DAILY Omeprazole Magnesium (Prilosec Otc) 20 Mg Tablet.dr 20 MG PO DAILY Pramipexole Dihydrochloride (Mirapex) 0.25 Mg Tablet 0.375 MG PO HS Warfarin Sodium (Warfarin Sodium) 2.5 Mg Tablet 2.5 MG PO 5xweekly last dose 07/13 Warfarin Sodium (Warfarin Sodium) 2.5 Mg Tablet 1.25 MG PO , tuesday last dose 07/13 Scheduled PRN Nitroglycerin SL (Nitrostat) 0.4 Mg Tab.subl 0.4 MG SL Q5MIN PRN PRN For Chest Pain General Time Seen by MD: 21:52 Past Medical History Past Medical History MT CHF 2/6 systolic ejection murmur heart attack sleep apnea UTI arthritis Reports: Hypertension Past Surgical History Cardiac stents Right 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
--- NOTE | 2017-01-10 21:55 | ED.REPORT ---
HPI-Chest Pain 40 and Over Date of Service Jan 10, 2017 ED Provider: Yunior Hooks MD An 86 year old female with a history of HI, cardiac stents, CHF, CABG, CVA, UTI and hypertension is brought to the ED via EMS due to chest pain onset 20:30. The pain is described as a 5/10 pressure located in the left side of her chest and radiating to her back, lasting for 1.5 hours. This was accompanied by diaphoresis. The pt resides in a correction home and is attended by a caregiver five days per week. Nursing Notes Stated Complaint: CHEST PRESSURE Nursing Notes Reviewed: Yes Allergies: Coded Allergies: Sulfa (Sulfonamide Antibiotics) (Verified Allergy, Severe, SWELLING, ) hydralazine (Verified Allergy, Severe, Rash, 07/14/15) lisinopril (Verified Allergy, Severe, Scratchy throat, 07/14/15) levofloxacin (Verified Allergy, Mild, 07/14/15) Scheduled Amlodipine (Amlodipine) 5 Mg Tablet 5 MG PO BID Atorvastatin (Lipitor) 40 Mg Tablet 40 MG PO DAILY Calcium Citrate/Vitamin D3 (Calcium Cit-Vit D 250-200 Tab) 1 Each Tablet 1 EACH PO DAILY Carvedilol (Carvedilol) 25 Mg Tablet 25 MG PO BID Cholecalciferol (Vitamin D3) (Vitamin D3) 1,000 Unit Tab.chew 2,000 UNIT PO DAILY Docusate Sodium (Colace) 100 Mg Capsule 100 MG PO BID Furosemide (Furosemide) 20 Mg Tab 40 MG PO DAILY Isosorbide MN ER (Isosorbide MN ER) 30 Mg Tab.er.24h 90 MG PO DAILY Losartan Potassium (Losartan Potassium) 50 Mg Tablet 25 MG PO QAM Losartan Potassium (Losartan Potassium) 50 Mg Tablet 50 MG PO QPM Magnesium Oxide (Mag-Oxide) 400 Mg Tablet 400 MG PO DAILY Multivitamin (Multi Vitamin Daily) 1 Each Tablet 1 EACH PO DAILY Omeprazole Magnesium (Prilosec Otc) 20 Mg Tablet.dr 20 MG PO DAILY Pramipexole Dihydrochloride (Mirapex) 0.25 Mg Tablet 0.375 MG PO HS Warfarin Sodium (Warfarin Sodium) 2.5 Mg Tablet 2.5 MG PO 5xweekly last dose 07/13 Warfarin Sodium (Warfarin Sodium) 2.5 Mg Tablet 1.25 MG PO , tuesday last dose 07/13 Scheduled PRN Nitroglycerin SL (Nitrostat) 0.4 Mg Tab.subl 0.4 MG SL Q5MIN PRN PRN For Chest Pain General Time Seen by MD: 21:52 Chief Complaint Chest pain Hx Obtained From: Patient, EMS Arrived By: Ambulance Sudden in Onset?: Yes Onset Occurred: 1 - 4 hours ago Symptom Duration: 1 - 4 hours Recent Healthcare: No recent hospitalization, Recent doctor visit Similar Sx Previous: No Past Medical History Past Medical History HI CHF 2/6 systolic ejection murmur sleep apnea UTI arthritis CVA Reports: Hypertension Past Surgical History Cardiac stents 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 Physical Exam Initial Vital Signs Vital Signs (First) Date Time Temp Pulse Resp B/P Pulse Ox O2 Delivery O2 Flow Rate FiO2 01/10/17 21:50 36.3 70 20 142/71 99 Room Air Initial VS: Reviewed, Vital signs normal General/Constitutional: Awake, Alert Respiratory / Chest: Breath sounds NL, Breath sounds = bilat, No respiratory distress scar from sternotomy incision Cardiovascular: Heart rate NL, Regular rhythm, Heart sounds NL no peripheral edema Abdomen: Atraumatic, Soft, Non-tender Neck: Atraumatic, Supple, Full range of motion, No JVD Back: Atraumatic, Full range of motion Lower Extremity / Pelvis / MS: Atraumatic, Full range of motion Skin: Atraumatic, Color NL, No rash, Warm, Dry Neurologic: Oriented X3, Speech NL, No motor deficits, No sensory deficits Psychiatric: Affect NL, Mood NL Head / Eyes: Atraumatic, Normocephalic, PERRL, EOMI ENT: Atraumatic, Airway patent, Mucous membranes moist Upper Extremity / MS: Atraumatic, Full range of motion Interpretation & Diagnostics Lab Results Interpretation Result Diagram: 01/10/17222801/10/172228 Test 01/10/17 22:29 White Blood Count 4.3th/mm3 (3.8-10.1) Red Blood Count 3.95mil/mm3 (3.90-5.20) Hemoglobin 12.4g/dL (12.0-15.6) Hematocrit 38.5% (35.0-46.0) Mean Corpuscular Volume 97.5fL (81-100) Mean Corpuscular Hemoglobin 31.4pg (27.0-35.0) Mean Corpuscular Hemoglobin Concent 32.2% (32.0-37.0) Red Cell Distribution Width 16.6% (12.3-15.4) Platelet Count 78bil/L (150-400) Neutrophils (%) (Auto) 36.2% (40-74) Lymphocytes (%) (Auto) 46.5% (14-46) Monocytes (%) (Auto) 13.8% (4-12) Eosinophils (%) (Auto) 2.3% (0-5) Basophils (%) (Auto) 0.5% (0-3) Band Neutrophils % 1% (1-5) Sodium Level 140mEq/L (134-144) Potassium Level 4.3mEq/L (3.5-5.2) Chloride Level 101mEq/L (97-108) Carbon Dioxide Level 23mmol/L (18-29) Blood Urea Nitrogen 19mg/dL (8-27) Creatinine 1.06mg/dL (0.57-1.00) Estimat Glomerular Filtration Rate 71mL/min (>59) Glucose Level 108mg/dL (60-99) Calcium Level 10.0mg/dL (8.5-10.1) Magnesium Level 1.7mg/dL (1.6-2.6) Total Bilirubin 0.3mg/dL (0.0-1.2) Aspartate Amino Transf (AST/SGOT) 26U/L (0-50) Alanine Aminotransferase (ALT/SGPT) 22U/L (0-32) Alkaline Phosphatase 61U/L (25-165) Troponin T 0.010ug/L (0.0-0.011) Total Protein 7.2g/dL (6.4-8.4) Albumin 4.6g/dL (3.4-5.0) ECG Interpretation ECG Interpretation: normal sinus rhythm with a rate of 61 LVH with secondary repolarization abnormality Time: 22:27 Interpreted by: ED physician X-Ray Chest Interpretation Chest Xray Interpretation: large hiatal hernia no acute cardiopulmonary disease Interpretation / Wet Read by: Wet read ED physician Re-Eval/Medical Decision Med Decision/Clinical Course 86-year-old female who had a brief episode of substernal chest pressure. Her pain is completely gone by the time she arrived in the emergency room she was totally asymptomatic. ED evaluation to include EKG 1 troponin 1 and chest x- ray and other laboratory is all negative. She will return MANUEL if she has return of discomfort. Source of Hx: Old records Time of Eval: 00:18 Patient Status: Condition improved Re-Evaluation/Progress Note: Patient rechecked. Discussed plan for discharge. Patient understands and agrees with plan. F/U instructions and RTER warnings given. All questions addressed at this time. Counseled Regarding: Diagnosis, Lab results, Need for follow-up, When/why to return to ED Discharge & Departure Primary Impression: Chest pain with low risk of acute coronary syndrome Disposition: Home Discharge Condition All VS Reviewed: Yes Condition: Stable Patient Instructions: Chest Pain (ED) Additional Instructions: It does not appear that this was serious or that there is any damage to her heart. Call 911 if you have recurrent pain. Follow-up with your regular doctor as needed. Referrals: Loreto Medina MD (PCP) Scribe Attestation Portions of this note were transcribed by Nicholas Wilson and Lilli Lora. I, Dr. Hooks personally performed the history, physical exam and medical decision-making; I reviewed and confirmed the accuracy of the information in the transcribed note. copies to: Loreto Medina MD, Howard L MD Jan 10, 2017 21:54 NICHOLAS WILSON Jan 10, 2017 22:52 Lilli Lora Jan 11, 2017 00:20
[2017-01-10 22:34] LABS: Mean Corpuscular Hemoglobin 31.4 pg (27.0-35.0); Mean Corpuscular Volume 97.5 fL (81-100)
[2017-01-10 22:35] LABS: BASOPHILS % (AUTO) 0.5 % (0-3); EOSINOPHILS % (AUTO) 2.3 % (0-5); MONOCYTES % (AUTO) 13.8 % (4-12); NEUTROPHILS % (AUTO) 36.2 % (40-74); Platelet Count 78 bil/L (150-400)
[2017-01-10 23:08] LABS: Magnesium 1.7 mg/dL (1.6-2.6); TROPONIN T 0.01 ug/L (0.0-0.011)
[2017-01-10 23:18] VITALS: BP 142/66; PULSE 66; RESP 18; O2SAT 99
[2017-01-11 00:27] VITALS: BP 135/64; PULSE 66; RESP 18; O2SAT 99
[2017-01-11 00:56] VITALS: BP 135/64; PULSE 66; RESP 18; O2SAT 99
--- NOTE | 2017-01-11 08:34 | DRSVH ---
PROCEDURE: X-RAY CHEST ONE VIEW, PORTABLE ([id number]) INDICATIONS: chest pain TECHNIQUE: One view of the chest was acquired. COMPARISON: [facility], CT, CHEST ANGIO-PE, 12/24/2011, 1:27. [facility], CR , CHEST 2VW, 01/11/2012, 11:02. [facility], CR, CHEST 1VW (PORTABLE), 09/01/2013, 19:47. [facility], CR, CHEST 1VW (PORTABLE), 03/25/2014, 11:40. FINDINGS: Surgical changes and devices: Post CABG changes are seen. Lungs and pleura: No pleural effusions or pneumothorax. Lungs are clear. Calcified granulomas can be seen. Mediastinum: A large hiatal hernia is seen. The cardiac contours are within normal limits. The aorta demonstrates calcification and tortuosity. Bones and chest wall: No suspicious bony lesions. Overlying soft tissues appear unremarkable. Age- appropriate bony degenerative changes are seen. IMPRESSION: No acute abnormality is seen. Large hiatal hernia. Postoperative changes. Prior granulomatous exposure. Dictated by: Shimon England M.D. on 01/11/2017 at 8:30 Approved by: Shimon England M.D. on 01/11/2017 at 8:32
== END 2017-01-11 01:04 | disposition home or self-care (01) ==
LOC: EDBD 21:39 → SED 21:39 → EDUNIT# 21:39 → SED 01-11 01:04
DX: R07.2 Precordial pain (principal); I11.0 Hypertensive heart disease with heart failure; I50.9 Heart failure, unspecified; I25.2 Old myocardial infarction; Z95.5 Presence of coronary angioplasty implant and graft; Z95.1 Presence of aortocoronary bypass graft; Z87.440 Personal history of urinary (tract) infections; Z86.73 Personal history of transient ischemic attack (TIA), and cerebral infarction without residual deficits; Z79.01 Long term (current) use of anticoagulants; Z88.1 Allergy status to other antibiotic agents; Z88.2 Allergy status to sulfonamides; Z88.8 Allergy status to other drugs, medicaments and biological substances